=== PATIENT | female | born 1980 | race Caucasian/White ===

== ENCOUNTER 2019-01-23 05:43 | Inpatient (IN) | payer OTHER ==
[2019-01-22 17:06] VITALS: BMI 28.9
[~2019-01-23] VITALS: Ht 154.9 cm; Wt 69.9 kg
[2019-01-23] VITALS (21 sets, daily range): BP systolic 108–151; BP diastolic 68–92; PULSE 60–99; RESP 16–30; Ht 154.9 cm; Wt 69.9 kg
[2019-01-23] MEDS ORDERED: ACETAMINOPHEN 500 MG TAB PO ONE (06:15)
--- NOTE | 2019-01-23 06:30 | PREOPHP ---
DATE OF ADMISSION: 01/23/2019 REASON FOR ADMISSION: The patient is coming on Tuesday for surgery. HISTORY OF PRESENT ILLNESS: This is a 38-year-old female, 0, para 0. This patient had a wilmer gstanding history of fibroids, menometrorrhagia, pelvic pain, intractable intermenstrual bleeding wit h multiple fibroids. The last ultrasound this year showed fibroids that are submucosal and subserosa l and intramural of different sizes between 4 cm to 2 cm in size, many of them. The endometrium was 0.5. Both ovaries were cystic. The patient is requesting to have a myomectomy to keep her fertility as an option. PAST MEDICAL HISTORY: Otherwise, had no surgeries. She never tried to get , so she does not know if she can. Her history is pretty healthy otherwise. SOCIAL HISTORY: She does not drink or smoke. No history of drugs. ALLERGIES: SHE IS ALLERGIC TO [employer]. REVIEW OF SYSTEMS: Otherwise, her menarche was at an early age with heavy periods always, regular pe riods as well. The patient has no urinary symptoms, no GI symptoms, no heart disease, lung disease, endocrine disease or neurological, orthopedic disease. She has no history of drugs or alcohol. FAMILY HISTORY: High blood pressure and diabetes. The patient has a history of being for 14 years, with some hirsutism and acne, with the possi bility of PCOS syndrome. We advised her for a myomectomy, multiple, and maybe a wedge resection of t he ovaries if they look polycystic, to avoid the acne and hirsutism, and maybe to give her the option of having more ovulation. The patient mainly has been requesting a better lifestyle where she does not have to be bleeding all the time and not in pain all the time. The patient is also advised that fibroids may come back, and there is a 75% chance that in 3 to 5 years new fibroids would show up. S he is aware of that and she still would like to do a myomectomy. FAMILY HISTORY: Hypertension, diabetes. MEDICATIONS: She is on no medication except for ibuprofen when she needs it. PHYSICAL EXAMINATION: GENERAL APPEARANCE: Good. VITAL SIGNS: Blood pressure is normal, 110/80, pulse is 80, respirations 16. The height is 5 feet 2 inches. She weighs 153. HEAD AND NECK: Normal. BREASTS: Soft, nontender. No masses. CHEST: Clear. HEART: Normal sinus rhythm. BACK: Normal. ABDOMEN: Soft, nontender. No masses. GENITALIA: Normal. Cervix is healthy. Uterus retroverted, flexed, with some fibroids that are mult iple, measured by ultrasound, between 2 to 4 cm each, and they are multiple in different areas of the uterus. The adnexa was with cystic ovaries. RECTAL: Normal. EXTREMITIES: Normal. DIAGNOSES: 1. Multiple fibroid uterus. 2. Intractable pelvic pain. 3. Intractable menometrorrhagia. 4. Polycystic ovarian syndrome. 5. Rule out tubal blockage. PLAN: She is undergoing a myomectomy, possible SEAN, possible wedge resection of ovarian cyst. The p atient has been advised of possible risks and possible complications of the procedure with the altern atives and options. Written information was provided. She had no more questions and agreed to go ah ead with the procedure with full understanding and no more questions. Dictated By: ALEXSANDRA SERVIN/JONA Conf#: [id number] DID#: [id number]
[2019-01-23] MEDS ORDERED: MULTI PO (06:49)
[2019-01-23] MEDS ORDERED: PHYTONADIONE 10 MG/ML INJ IM SCH (07:00)
[2019-01-23] MEDS ORDERED: LACTATED RINGER'S 1,000 ML IV SCH (07:00)
[2019-01-23] MEDS ORDERED: CEFAZOLIN 2 GM/50 ML (PMX) 50 ML IVPB ONE (07:00)
--- NOTE | 2019-01-23 07:06 | PREAC ---
Date/Time of Note Date/Time of Note DATE: 01/23/19 TIME: 07:04 Anesthesia Eval and Record Evaluation Time Pre-Procedure Interview DATE: 01/23/19 TIME: 07:04 Age 39 Sex female NPO: 8 hrs Preoperative diagnosis multiple fibroids Planned procedure multiple myomectomy Past Medical History Past Medical History: None Surgery & Anesthesia Issues No known issue Meds Anticoagulation: No Beta Rich within 24 hr: No Reason Beta Rich not given: Pt. not on B-Rich Reported Medications Multivitamins* (Theragran*) 1 Tab Tab, 1 TAB PO DAILY, TAB 01/23/19 Current Medications Cefazolin Sodium/ Dextrose 50 ml @ 100 mls/hr PRE-OP ONCE IVPB ; Start 01/23/19 at 07:00; Stop 01/23/19 at 07:29 Phytonadione (Vitamin K) 10 mg PREOP IM ; Start 01/23/19 at 07:00; Stop 01/23/19 at 16:00 Lactated Ringer's 1,000 ml @ 125 mls/hr Q8H IV Last administered on 01/23/19at 06:58; Admin Dose 125 MLS/HR; Start 01/23/19 at 07:00 Meds reviewed: Yes Allergies Coded Allergies: walnut (Verified Allergy, Severe, sob, throat swells, 01/23/19) Allergies Reviewed: Yes Labs/Studies Labs Reviewed: Reviewed by anesthesiologist test: Negative Studies: ECG (nml nsr), CXR (no active dz) Pre-procedure Exam Airway: Adequate mouth opening, Adequate thyromental dist Mallampati: Mallampati II Teeth: Normal Lung: Normal Heart: Normal ASA Physical Status ASA physical status: 1 Emergency: None Planned Anesthetic General/MAC: ETT Pre-operative Attestations Prior to commencing anesthesia and surgery, the patient was re-evaluated, there was verification of: *The patient's identity *The results of appropriate recent lab work and preoperative vital signs *The above evaluation not changing prior to induction *Anesthetic plan, risk benefits, alternative and complications discussed with patient/family; questions answered; patient/family understands, accepts and wishes to proceed. LEBRON LI Jan 23, 2019 07:06
[2019-01-23] MEDS ORDERED: CEFAZOLIN 1 GM INJ ONE (07:20)
[2019-01-23] MEDS ORDERED: MIDAZOLAM 1 MG/ML 2 ML INJ ONE (07:20)
[2019-01-23] MEDS ORDERED: ROCURONIUM 50 MG INJ ONE (07:20)
[2019-01-23] MEDS ORDERED: LIDOCAINE 2% (SDV) 5 ML INJ ONE (07:20)
[2019-01-23] MEDS ORDERED: FAMOTIDINE 20 MG INJ ONE (07:20)
[2019-01-23] MEDS ORDERED: PROPOFOL 40 ML ONE ×2 (07:20→08:21)
[2019-01-23] MEDS ORDERED: FENTAnyl 50 MCG/ML VIAL ONE ×2 (07:20→08:48)
[2019-01-23] MEDS ORDERED: ONDANSETRON 4 MG INJ ONE (07:20)
[2019-01-23] MEDS ORDERED: FENTAnyl 50 MCG/ML VIAL IV PRN ×2 (07:30)
[2019-01-23] MEDS ORDERED: morphine 2 MG INJ IV PRN ×2 (07:30)
[2019-01-23] MEDS ORDERED: HYDROmorphONE 1 MG/5 ML IV SYRINGE IV PRN ×3 (07:30)
[2019-01-23] MEDS ORDERED: ONDANSETRON 4 MG INJ IV PRN (07:30)
[2019-01-23] MEDS ORDERED: OXYCODONE/ACETAMINOPHEN (5/325) TAB PO PRN ×2 (07:30)
[2019-01-23] MEDS ORDERED: MEPERIDINE 25 MG INJ IV PRN (07:30)
[2019-01-23] MEDS ORDERED: DIPHENHYDRAMINE 50 MG INJ IV PRN (07:30)
[2019-01-23] MEDS ORDERED: LABETALOL HCL 20MG INJ IV PRN (07:30)
[2019-01-23] MEDS ORDERED: ALBUTEROL 0.083% (NEB) 2.5 MG/3 ML AMP HHN PRN (07:30)
--- NOTE | 2019-01-23 07:37 | HPN ---
Date/Time of Note Date/Time of Note DATE: 01/23/19 TIME: 07:37 Interval H&P Admission Note Pt. seen H&P reviewed: No system changes ALEXSANDRA CARLOS MD Jan 23, 2019 07:37
[2019-01-23] MEDS ORDERED: VASOPRESSIN 20 UNITS INJ ONE ×3 (08:15→09:01)
[2019-01-23] MEDS ORDERED: MAGNESIUM SULFATE 1 GM/D5W 100 ML ONE (08:17)
[2019-01-23] MEDS ORDERED: OXYTOCIN 10 UNIT INJ INJ ONE (08:48)
[2019-01-23] MEDS ORDERED: OXYTOCIN 10 UNIT INJ ONE (08:48)
[2019-01-23] MEDS ORDERED: SUGAMMADEX SODIUM 200 MG/2 ML VIAL IV ONE (09:04)
--- NOTE | 2019-01-23 10:10 | PAC ---
Date/Time of Note Date/Time of Note DATE: 01/23/19 TIME: 10:09 Post-Anesthesia Notes Post-Anesthesia Note Last documented vital signs Vital Signs Date Temp Pulse Resp B/P (MAP) Pulse Ox O2 O2 Flow FiO2 Time Delivery Rate 01/23/19 97.6 98 62 72 17 18 129/80 97 100 Room 07:20 100 (96) 150/ Air face 3 77 mask 6L Activity: WNL Respiratory function: WNL Cardiovascular function: WNL Mental status: Baseline Pain reasonably controlled: Yes Hydration appropriate: Yes Nausea/Vomiting absent: Yes LEBRON LI Jan 23, 2019 10:10
--- NOTE | 2019-01-23 10:15 | SIPON ---
Date/Time of Note Date/Time of Note DATE: 01/23/19 TIME: 10:13 Operative Report Preoperative Diagnosis Multiple fibroid uterus Intractable pelvic pain and bleeding Polycystic ovarian syndrome Postoperative Diagnosis Same plus old PID severe adhesions and possible tubal blockage Operation/Procedure Performed Exploratory laparotomy Multiple myomectomy Lysis of adhesions Fulguration of bilateral multicystic ovaries Surgeon see signature line bilingual office assistant OR tech Anesthesia: general Estimated blood loss: 150 - 200 ml's Transfusion Required none Specimen Uterine fibroids and adhesions Grafts/Implants none Complications none ALEXSANDRA CARLOS MD Jan 23, 2019 10:15
[2019-01-23] MEDS ORDERED: DIPHENHYDRAMINE 50 MG CAP PO PRN (10:30)
[2019-01-23] MEDS ORDERED: HYDROCODONE/APAP (5/325) TAB PO PRN (10:30)
[2019-01-23] MEDS ORDERED: ONDANSETRON INJ 6 MG in DEXTROSE 5% 50 ML IVPB PRN (10:30)
[2019-01-23] MEDS ORDERED: ZOLPIDEM 5 MG TAB PO PRN (10:30)
[2019-01-23] MEDS: LACTATED RINGER'S 1,000 ML IV SCH ×3 (10:41→20:44)
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
[2019-01-23] MEDS: KETOROLAC 30 MG INJ IV SCH ×3 (11:21→22:04)
[2019-01-23] MEDS: METOCLOPRAMIDE 10 MG TAB PO SCH ×2 (11:24→17:51)
[2019-01-23] MEDS ORDERED: CEFAZOLIN 1 GM/50 ML (PMX) 50 ML IVPB SCH (14:00)
[2019-01-23] MEDS: CEFAZOLIN 1 GM/50 ML (PMX) 50 ML IVPB SCH ×2 (16:33→22:02)
[2019-01-23] MEDS: HYDROCODONE/APAP (5/325) TAB PO PRN (17:12)
[2019-01-24] MEDS: METOCLOPRAMIDE 10 MG TAB PO SCH ×5 (00:35→23:10)
[2019-01-24 03:47] VITALS: BP 116/65; PULSE 77; RESP 21
[2019-01-24] MEDS: KETOROLAC 30 MG INJ IV SCH ×4 (04:38→23:21)
[2019-01-24 04:51] VITALS: PULSE 80
[2019-01-24] MEDS: CEFAZOLIN 1 GM/50 ML (PMX) 50 ML IVPB SCH (06:09)
[2019-01-24] MEDS: LACTATED RINGER'S 1,000 ML IV SCH ×2 (06:12→16:13)
--- NOTE | 2019-01-24 07:40 | PN ---
Date/Time of Note Date/Time of Note DATE: 01/24/19 TIME: 07:38 Assessment/Plan Lines/Catheters IV Catheter Type (from Nrsg): Peripheral IV Doe in Place (from Nrsg): Yes Subjective 24 Hr Interval Summary Day 1 postop Afebrile In pain Vitals are stable CBC is normal with some neutrophil elevation expected after surgery. Patient was explained about surgery as she is appreciative of it Encouraged ambulation Incision dry. Diet advance Feeding: advancing diet Pain Control: mild Detailed Summary Eyes: no complaints ENT: no complaints Respiratory: no complaints Cardiovascular: no complaints Gastrointestinal: no complaints Genitourinary: no complaints Musculoskeletal: no complaints Skin: no complaints Neurologic: no complaints Endocrine: no complaints Lymphatic: no complaints Psychological: no complaints, nl mood/affect Immunologic: no complaints Exam/Review of Systems Vital Signs Vitals Vital Signs Date Temp Pulse Resp B/P (MAP) Pulse Ox O2 O2 Flow FiO2 Time Delivery Rate 01/24/19 98.4 80 04:51 01/24/19 21 116/65 95 Room Air 03:47 (82) 01/23/19 3.0 10:57 Intake and Output 01/23/19 01/23/19 01/24/19 1515:00 23:00 07:00 IntakeIntake Total 2600 ml 1340 ml OutputOutput Total 550 ml 500 ml 800 ml BalanceBalance 2050 ml 840 ml -800 ml Exam Constitutional: alert, oriented, well developed Psych: no complaints, nl mood/affect Head: normocephalic, atraumatic Eyes: nl conjunctiva, EOMI, nl lids, nl sclera ENMT: nl external ears & nose, nl lips & teeth, nl nasal mucosa & septum, mucosa pink and moist Neck: supple, non-tender Respiratory: clear to auscultation, normal air movement Cardiovascular: regular rate and rhythm, nl pulses Gastrointestinal: soft, nl liver, spleen, non-tender Musculoskeletal: nl extremities to inspection, nl gait and stance Extremities: normal pulses Neurological: SALT WASHER II-XII intact, nl mental status, nl speech, nl strength Skin: nl turgor, rash or lesions Lymph: nl lymph nodes Results Result Diagram: 01/24/19 0429 01/24/19 0428 ALEXSANDRA CARLOS MD Jan 24, 2019 07:40
[2019-01-24] MEDS ORDERED: BISACODYL (EC) 5 MG TAB PO ONE ×2 (08:00→09:30)
[2019-01-24 08:06] VITALS: BP 102/62; PULSE 78; RESP 16
[2019-01-24 14:48] VITALS: BP 118/83; PULSE 78; RESP 18
--- NOTE | 2019-01-24 15:43 | RADRPT ---
Vent Rate: 56 bpm RR Interval: 1076 msec ME Interval: 165 msec QRS Duration: 82 msec QT Interval: 426 msec QTC Interval: 411 msec P-R-T [place]: 47 - 14 - 27 degrees Sinus rhythm...normal P axis, V-rate 50- 99 Low voltage, precordial leads...precordial leads <1.0mV Electronically Signed By: Bakari Bettencourt
[2019-01-24] MEDS: HYDROCODONE/APAP (5/325) TAB PO PRN (17:37)
[2019-01-24 20:04] VITALS: BP 119/71; RESP 20
[2019-01-24] MEDS ORDERED: SOD CHLORIDE 0.9% 100 ML ONE (22:08)
[2019-01-24] MEDS ORDERED: IOHEXOL 300MG/ML 150 ML BTL ONE (22:08)
[2019-01-25 02:01] VITALS: BP 117/72; RESP 17
[2019-01-25] MEDS: LACTATED RINGER'S 1,000 ML IV SCH ×3 (02:19→16:00)
[2019-01-25] MEDS: KETOROLAC 30 MG INJ IV SCH (05:00)
[2019-01-25] MEDS: METOCLOPRAMIDE 10 MG TAB PO SCH ×3 (06:08→18:17)
[2019-01-25 07:29] VITALS: BP 107/63; PULSE 73; RESP 18
[2019-01-25] MEDS: HYDROCODONE/APAP (5/325) TAB PO PRN ×2 (11:18→18:17)
[2019-01-25 14:33] VITALS: BP 111/82; PULSE 80; RESP 18
--- NOTE | 2019-01-25 14:52 | PD.PPDC ---
MANAGER BUSINESS PLANNING Discharge Instruction Condition [id number] Patient Condition: Ojvex2h Good Diet Paumc4Ae Diet: Jpevf7i Resume Regular Diet Activity/Restrictions Quvdv6Ku Activity: Padll6x Normal Activity May Shower Frypw4Hh Restrictions: Ccnxj4i No Exercising No Lifting No Driving No Sexual Activity Nothing in the Vagina No [place] No Tampons, douche Wound/Drain Care Instructions [id number] Wound/Drain Care Instructions: [id number] Wash with soap and water Keep clean and dry Follow-up Follow-up with Physician: 1 Return to clinic for [id number] GEOPHYSICIST Instructions: Diimf0a Fever greater than 101 Chills Worsening abdominal pain Excessive Vaginal Bleeding More than 2 pads per hour Unable to tolerate diet [id number] Surgical Instructions: Knjxd5u Incisional Drainage Incisional Redness ALEXSANDRA CARLOS MD Jan 25, 2019 14:52
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
== END 2019-01-25 19:30 | disposition home or self-care (01) | DRG 983 ==
LOC: SDS 05:43 → REC 07:36 → MS1 10:58
PROVIDERS: ADMIT Obstetrics & Gynecology; ATTEND Obstetrics & Gynecology
PROC: 0UN70ZZ Release Bilateral Fallopian Tubes, Open Approach (ICD-10-PCS; 2019-01-23)
PROC: 0UN90ZZ Release Uterus, Open Approach (ICD-10-PCS; 2019-01-23)
PROC: 0UN20ZZ Release Bilateral Ovaries, Open Approach (ICD-10-PCS; 2019-01-23)
PROC: 0U520ZZ Destruction of Bilateral Ovaries, Open Approach (ICD-10-PCS; 2019-01-23)
PROC: 0UB90ZZ Excision of Uterus, Open Approach (ICD-10-PCS; principal; 2019-01-23 07:30)
DX: R10.2 Pelvic and perineal pain (principal); D25.9 Leiomyoma of uterus, unspecified; N92.1 Excessive and frequent menstruation with irregular cycle; E28.2 Polycystic ovarian syndrome; N73.9 Female pelvic inflammatory disease, unspecified; N73.6 Female pelvic peritoneal adhesions (postinfective); K76.0 Fatty (change of) liver, not elsewhere classified
CPT/HCPCS: 71046; 74178; 80051; 82565; 84520; 85025; 86850; 86900; 86901; 87086; 88307; 93005; J0690; J1170; J1885; J2175; J2250; J2405; J2590; J3010; J3475; J7120; Q9967